=== PATIENT | female | born 1960 | race Hispanic/Latino ===

== ENCOUNTER 2017-02-19 09:32 | Emergency (ER) | payer OTHER ==
[2017-02-19 09:43] VITALS: RESP 18; TEMP 98.5; O2SAT 98; BMI 42.4
[2017-02-19] MEDS ORDERED: Lidocaine 5% Patch TD STA (10:24)
--- NOTE | 2017-02-19 10:24 | C.PDOC ---
History Of Present Illness 56 y/o female presents to ED with complaints of Bilateral lower back pain since yesterday worse with movement. Patient states symptoms are onset after heavy lifting and is unable to lay flat. 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 No associated symptoms or other complaints at this time. B/L LBP SINCE YEST. ONSET AFTER HEAVY LIFTING. WORSE W MOVEMENT. UNABLE TO LAY FLAT. LOCALIZED. NO OTHER ASSOC SX. RELIEF W PERCOCET GIVEN TO HER BY FAMILY. NO RELIEF W ASA. 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 LIMITED ROM DUE TO PAIN. NO LS TEND NEURO INTACT SKI NEG Time Seen by Provider: 02/19/17 10:17 Chief Complaint (Nursing): Back Pain History Per: Patient History/Exam Limitations: no limitations Onset/Duration Of Symptoms: Days Past Medical History Reviewed: Historical Data, Nursing Documentation, Vital Signs Vital Signs: Last Vital Signs Temp 98.5 F 02/19/17 09:42 Pulse 93 H 02/19/17 09:42 Resp 18 02/19/17 09:42 BP 160/94 H 02/19/17 09:42 Pulse Ox 98 02/19/17 10:24 - Medical History PMH: Kidney Stones Family History: States: No Known Family Hx - Social History Hx Tobacco Use: No Hx Alcohol Use: Yes (socailly) Hx Substance Use: No - Immunization History Hx Tetanus Toxoid Vaccination: No Hx Influenza Vaccination: No Hx Pneumococcal Vaccination: No Review Of Systems Except As Marked, All Systems Reviewed And Found Negative. Cardiovascular: Negative for: Chest Pain Gastrointestinal: Negative for: Nausea, Vomiting, Diarrhea Musculoskeletal: Positive for: Back Pain Skin: Negative for: Rash Neurological: Negative for: Weakness, Headache Physical Exam - Physical Exam Appears: Non-toxic, Other (Mild distress) Skin: Normal Color, Warm Head: Atraumatic, Normacephalic Eye(s): bilateral: Normal Inspection Back: Decreased ROM (Due to pain), Muscle Spasm (+ Bilateral with local tenderness) Neurological/Psych: Oriented x3, Normal Speech, Normal Cognition ED Course And Treatment O2 Sat by Pulse Oximetry: 98 (RA) Pulse Ox Interpretation: Normal Disposition Counseled Patient/Family Regarding: Diagnosis, Need For Followup, Rx Given - Disposition Referrals: [facility] [Outside] [facility] [Outside] Disposition: HOME/ ROUTINE Disposition Time: 10:24 Condition: IMPROVED Additional Instructions: REMOVE PATCH 12 HOURS AFTER APPLICATION. 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 MD/DO has examined the patient and agrees with the treatment plan. - Scribe Statement The provider has reviewed the documentation as recorded by the Pippa Carlson All medical record entries made by the Pippa were at my direction and personally dictated by me. I have reviewed the chart and agree that the record accurately reflects my personal performance of the history, physical exam, medical decision making, and the department course for this patient. I have also personally directed, reviewed, and agree with the discharge instructions and disposition.
[2017-02-19] MEDS ORDERED: Lidocaine 5% Patch TD ONE (10:37)
[2017-02-19 11:07] VITALS: BP 138/85; PULSE 88
== END 2017-02-19 11:10 | disposition home or self-care (01) ==
LOC: C.ER 09:32
DX: S39.012A Strain of muscle, fascia and tendon of lower back, initial encounter (principal); X50.9XXA Other and unspecified overexertion or strenuous movements or postures, initial encounter
CPT/HCPCS: 96372; 99283; J1885